=== PATIENT | male | born 1990 | race American Indian/Alaskan Native ===

== ENCOUNTER 2018-10-25 09:55 | Emergency (ER) | payer SELFPAY ==
[2018-10-25 10:01] VITALS: BP 133/85
[2018-10-25] MEDS ORDERED: ULTRAM PO ONE (10:23)
[2018-10-25] MEDS ORDERED: IBUPROFEN PO ONE (10:23)
[2018-10-25 11:04] LABS: Bilirubin,Urine NEG (Negative); Blood,Urine NEG (Negative); Color,Urine Straw (Yellow); Mucus,Urine FEW /HPF; Protein,Urine <15 mg/dL mg/dL (Negative); Urobilinogen,Urine < 2.0 mg/dL (<2.0)
--- NOTE | 2018-10-25 11:59 | Ultrasound Report ---
ULTRASOUND TESTICULAR DOPPLER COMPLETE History: Pain and swelling. Technique: Trans-scrotal ultrasound with spectral doppler interrogation. Findings: Both testes and epididymides are normal size, contour and echotexture. No hydrocele or varicocele. No mass or pathologic calcifications. Color Doppler interrogation demonstrates mild hyperemia to the right testicle compared to the left. Spectral Doppler waveforms demonstrate arterial flow bilaterally. IMPRESSION: Mild hyperemia of the right testicle. Consider right orchitis.
[2018-10-25] MEDS ORDERED: XYLOCAINE 1% MPF 5 mL INFILTRATI ONE (12:26)
[2018-10-25] MEDS ORDERED: ROCEPHIN IM ONE (12:26)
[2018-10-25] MEDS ORDERED: ZITHROMAX PO ONE (12:26)
--- NOTE | 2018-10-25 12:38 | Emergency Department Report ---
ED Male HPI - General Chief complaint: Urogenital-Male Stated complaint: GENTIALS COMPLICATIONS Time Seen by Provider: 10/25/18 10:18 Source: patient Mode of arrival: Ambulatory Limitations: No Limitations - History of Present Illness Initial comments: Patient is a 28-year-old male who is presenting with 1 week of penile discharge. Patient states he also has some lower abdominal and lower back pain as well in this timeframe. Patient states over the last several days he also is having some pain in his testicles. Pain is 8 out of 10 in severity and aching and throbbing. Patient with a white penile discharge with dysuria. Patient denies any fevers chills nausea vomiting diarrhea at this time. Patient has had unprotected sex. - Related Data Previous Rx's Medication Instructions Recorded Last Taken Type DOXYCYCLINE Hyclate [Vibramycin 100 mg PO Q12HR #20 capsule 10/25/18 Unknown Rx CAP] HYDROcodone/APAP 5-325 [Hollis 1 each PO Q6HR PRN #14 tablet 10/25/18 Unknown Rx 5/325] Ketorolac [Toradol] 10 mg PO Q6H PRN #12 tablet 10/25/18 Unknown Rx Allergies Allergy/AdvReac Type Severity Reaction Status Date / Time No Known Allergies Allergy Verified 10/25/18 09:58 ED Review of Systems ROS: Stated complaint: GENTIALS COMPLICATIONS Other details as noted in HPI Comment: All other systems reviewed and negative ED Past Medical Hx - Past Medical History Previous Medical History?: Yes Hx Asthma: Yes - Surgical History Past Surgical History?: Yes Additional Surgical History: right ear cyst removal - Social History Smoking Status: Never Smoker Substance Use Type: None - Medications Home Medications: Home Medications Medication Instructions Recorded Confirmed Last Taken Type DOXYCYCLINE Hyclate [Vibramycin 100 mg PO Q12HR #20 capsule 10/25/18 Unknown Rx CAP] HYDROcodone/APAP 5-325 [Hollis 1 each PO Q6HR PRN #14 tablet 10/25/18 Unknown Rx 5/325] Ketorolac [Toradol] 10 mg PO Q6H PRN #12 tablet 10/25/18 Unknown Rx ED Physical Exam - General Limitations: No Limitations General appearance: alert, in no apparent distress - Head Head exam: Present: atraumatic, normocephalic - Eye Eye exam: Present: normal appearance - ENT ENT exam: Present: mucous membranes moist - Neck Neck exam: Present: normal inspection - Respiratory Respiratory exam: Present: normal lung sounds bilaterally. Absent: respiratory distress, wheezes, rales, rhonchi - Cardiovascular Cardiovascular Exam: Present: regular rate, normal rhythm. Absent: systolic murmur, diastolic murmur, rubs, gallop - GI/Abdominal GI/Abdominal exam: Present: soft, normal bowel sounds. Absent: distended, tenderness, guarding, rebound - Rectal Rectal exam: Present: deferred - exam: Present: normal inspection, testicular tenderness (R>L), urethral discharge. Absent: scrotal swelling - Extremities Exam Extremities exam: Present: normal inspection - Back Exam Back exam: Present: normal inspection - Neurological Exam Neurological exam: Present: alert, oriented X3 - Psychiatric Psychiatric exam: Present: normal affect, normal mood - Skin Skin exam: Present: warm, dry, intact, normal color. Absent: rash ED Course Vital Signs 10/25/18 10/25/18 09:59 10:30 Temperature 98.3 F Pulse Rate 80 Respiratory 18 16 Rate Blood Pressure 133/85 [Right] O2 Sat by Pulse 100 Oximetry ED Medical Decision Making - Lab Data Lab Results 10/25/18 Range/Units Unknown Urine Color Straw (Yellow) Urine Turbidity Clear (Clear) Urine pH 7.0 (5.0-7.0) Ur Specific [place]well 1.011 (1.003-1.030) Urine Protein <15 mg/dl (Negative) mg/dL Urine Glucose (UA) Neg (Negative) mg/dL Urine Ketones Neg (Negative) mg/dL Urine Blood Neg (Negative) Urine Nitrite Neg (Negative) Urine Bilirubin Neg (Negative) Urine Urobilinogen < 2.0 (<2.0) mg/dL Ur Leukocyte Esterase Tr (Negative) Urine WBC (Auto) 8.0 H (0.0-6.0) /HPF Urine RBC (Auto) 1.0 (0.0-6.0) /HPF U Epithel Cells (Auto) 1.0 (0-13.0) /HPF Urine Mucus Few /HPF - Radiology Data [facility] [address] [place] [address] Ultrasound Report Signed Patient: CRISTAL SINGH MR#: [id number] : 1990 Acct:[id number] Age/Sex: 28 / M ADM Date: 10/25/18 Loc: ED Attending Dr: Ordering Physician: SALVATORE QUIJANO MD Date of Service: 10/25/18 Procedure(s): US testicular doppler comp Accession Number(s): [id number] cc: SALVATORE QUIJANO MD ULTRASOUND TESTICULAR DOPPLER COMPLETE History: Pain and swelling. Technique: Trans-scrotal ultrasound with spectral doppler interrogation. Findings: Both testes and epididymides are normal size, contour and echotexture. No hydrocele or varicocele. No mass or pathologic calcifications. Color Doppler interrogation demonstrates mild hyperemia to the right testicle compared to the left. Spectral Doppler waveforms demonstrate arterial flow bilaterally. IMPRESSION: Mild hyperemia of the right testicle. Consider right orchitis. Transcribed By: TTR Dictated By: DAVID SANTIAGO JR, MD Electronically Authenticated By: DAVID SANTIAGO JR, MD Signed Date/Time: 10/25/18 1154 DD/ 1153 TD/TT: 10/25/18 1154 - Medical Decision Making Patient is a 28-year-old [place] male who is presenting with right-sided testicular pain as well as a penile discharge. GC chlamydia DNA probe has been sent. Patient likely because of his risky sexual behavior and a likely has a ST. Patient ultrasound shows that he does have a right sided orchitis. Patient to be started on 10 days of doxycycline. Patient given Rocephin and azithromycin here in the emergency department. Patient be discharged home with urology follow-up. Critical care attestation.: If time is entered above; I have spent that time in minutes in the direct care of this critically ill patient, excluding procedure time. ED Disposition Clinical Impression: Acute orchitis, Urethritis Disposition: - TO HOME OR SELFCARE Is pt being admited?: No Does the pt Need Aspirin: No Condition: Stable Instructions: Nonspecific Urethritis in Men (ED), Epididymo-orchitis (ED) Referrals: KRISTA PATTEN MD [Primary Care Provider] - 3-5 Days Forms: STI Treatment and Prevention Time of Disposition: 12:38
== END 2018-10-25 12:48 | disposition home or self-care (01) ==
LOC: ED 09:55
DX: N45.2 Orchitis (principal); N34.2 Other urethritis; J45.909 Unspecified asthma, uncomplicated
CPT/HCPCS: 81001; 87591; 93975; 96372; 99284; J0696